=== PATIENT | male | born 1960 | race Caucasian/White ===

== ENCOUNTER 2022-04-25 18:38 | Emergency (ER) | payer MEDICARE, OTHER, SELFPAY ==
[2022-04-25 18:45] VITALS: BP 198/87; PULSE 85; RESP 16; TEMP 36.7; O2SAT 97
[2022-04-25 18:50] VITALS: BP 198/87; PULSE 85; RESP 18; TEMP 36.7; O2SAT 97
--- NOTE | 2022-04-25 18:50 | PC.NURSE ---
nasal clamp placed on patient
--- NOTE | 2022-04-25 19:14 | ED.EPISTAXIS ---
HPI - Epistaxis General Chief complaint: Epistaxis Stated complaint: nose bleed Time Seen by Provider: 04/25/22 19:12 Source: patient Mode of arrival: ambulatory Limitations: no limitations History of Present Illness HPI Narrative: 61-year-old male, smoker with a history of CAD status post stent, hypertension, dyslipidemia presented to the ER with -- bleeding right nostril since this morning. No nasal congestion or sinus tenderness . Patient is on aspirin and Plavix. A nasal clip was applied and Tej-Synephrine instilled into right nostril without any improvement. The patient continued to be have blood dripping from the right nostril initially and subsequently from both nostrils. MD complaint: epistaxis Location: right nostril and bilateral nostril Onset (ago): hour(s) ( Started this morning) Duration: intermittent Context: aspirin use ( uses aspirin and Plavix) Treatment prior to arrival: nose pinching Related Data Home Medications Medication Instructions Recorded Confirmed atorvastatin 40 mg tablet 40 mg PO DAILY 04/25/22 04/25/22 clopidogrel 75 mg tablet 75 mg PO DAILY 04/25/22 04/25/22 olmesartan 40 1 tablet PO DAILY 04/25/22 04/25/22 mg-hydrochlorothiazide 25 mg tablet Allergies Allergy/AdvReac Type Severity Reaction Status Date / Time No Known Allergies Allergy Verified 04/25/22 19:05 Review of Systems Review of Systems: All systems reviewed & are unremarkable except as noted in HPI and below Constitutional: Constitutional: Reports as per HPI and Reports no additional constitutional complaints Eyes: Eyes: Reports as per HPI and Reports no additional eye complaints ENT: Reports system reviewed and no additional complaints, except as documented, Reports as per HPI and Reports epistaxis Cardiovascular: Cardiovascular: Reports as per HPI and Reports no additional cardiovascular complaints Respiratory: Respiratory: Reports as per HPI, Reports no additional respiratory complaints, Reports chest congestion, Reports cough, Reports dyspnea and Reports wheezing Gastrointestinal: Gastrointestinal: Reports as per HPI and Reports no additional gastrointestinal complaints Genitourinary: Genitourinary: Reports no additional male genitourinary complaints and Reports as per HPI Musculoskeletal: Musculoskeletal: Reports no additional musculoskeletal complaints and Reports as per HPI Integumentary/Breasts: Skin/Breast: Reports system reviewed and no additional complaints, except as docu and Reports as per HPI Neurologic: Reports system reviewed and no additional complaints, except as documented and Reports as per HPI Psychiatric: Psychiatric: Reports no additional psychiatric complaints and Reports as per HPI Endocrine: Endocrine: Reports no additional endocrine complaints and Reports as per HPI Hematologic/Lymphatic: Hematologic/Lymphatic: Reports no additional hematologic/lymphatic complaints and Reports as per HPI Allergic/Immunologic: Allergic/Immunologic: Reports no additional allergic/immunologic complaints and Reports as per HPI Exam Const: General: ill appearing Nutritional Appearance: thin HENMT: Head: normal to inspection Ears: external ears normal Face/Nose/Sinus: Normal external nose present ( right-sided epistaxis and subsequently bilateral epistaxis) and Epistaxis present Face and sinus: normal facial exam Mouth: Yes Normal oral and palatal mucosa present Throat: posterior oropharynx normal Eyes: Conjunctivae: conjunctivae normal Pupils: Equal, round and reactive pupils present EOM: EOMs intact bilaterally Direct Ophthalmoscopy: no photophobia Neck: Neck: normal visual inspection, no lymphadenopathy and no meningeal signs Chest: Chest palpation & inspection: normal inspection of the chest Resp: Effort & Inspection: labored Auscultation: rhonchi, wheezes and diminished lung sounds Cardio: Rate: regular rate Rhythm: regular rhythm GI: GI Palp: Yes Soft to palpation Auscultation
[2022-04-25] MEDS: PHENYLEPHRINE HCL 0.5% NA SPRAY 15 ML BTL (*BKC) 1 SPRAY EACH NARE (19:21)
[2022-04-25] MEDS: IPRATROPIUM 0.5 MG/ALBUTEROL SULFATE 2.5 MG AMPUL.NEB 3 ML INHALATION (19:30)
[2022-04-25 19:31] VITALS: PULSE 80; RESP 20
[2022-04-25 19:40] VITALS: PULSE 81; RESP 20
[2022-04-25 19:42] LABS: Basophils Absolute Auto 0.09 K/mm3 (0.00-0.10); Basophils Percent Auto 0.9 % (0.0-1.0); Eosinophils Absolute Auto 0.15 K/mm3 (0.02-0.50); Eosinophils Percent Auto 1.6 % (1.0-6.0); Hematocrit 34.7 % (40.0-54.0); Hemoglobin 11.4 g/dL (14.0-18.0); Immature Granulocyte Absolute 0.03 K/mm3 (0.00-0.00); Immature Granulocyte Percent A 0.3 % (0.0-0.0); Lymphocytes Absolute Auto 2.19 K/mm3 (1.10-4.50); Lymphocytes Percent Auto 22.8 % (18.0-42.0); Mean Corpuscular HGB Conc 32.9 g/dL (32.0-36.0); Mean Corpuscular Hemoglobin 34.3 pg (27.0-31.0); Mean Corpuscular Volume 104.5 fL (78.0-102.0); Mean Platelet Volume 8.3 fl (8.7-11.0); Monocytes Absolute Auto 0.75 K/mm3 (0.10-0.90); Monocytes Percent Auto 7.8 % (2.0-11.0); Neutrophils Absolute Auto 6.4 K/mm3 (1.7-7.2); Neutrophils Percent Auto 66.6 % (50.0-70.0); Platelet Count Result 307 K/mm3 (150-420); Red Blood Count 3.32 M/mm3 (4.70-6.10); Red Cell Distribution Width 14.4 % (11.6-14.4); White Blood Count 9.6 K/mm3 (4.8-10.8)
[2022-04-25 19:57] LABS: INR 0.9; Partial Thromboplastin Time 25.6 SEC (23.90-30.70); Prothrombin Time 9.7 Seconds (9.50-12.10)
[2022-04-25 20:05] LABS: Alanine Aminotransferase 18 U/L (16-63); Albumin Level 3.2 g/dL (3.4-5.0); Alkaline Phosphatase 54 U/L (46-116); Anion Gap 9 mmol/L (8-16); Aspartate Amino Transferase 14 U/L (15-37); Bilirubin,Total 0.3 mg/dL (0.00-1.00); Blood Urea Nitrogen 27 mg/dL (7-18); Calcium 8.7 mg/dL (8.5-10.1); Carbon Dioxide 28 mmol/L (21-32); Chloride 105 mmol/L (98-108); Estimated CRCL calculation 63 ml/min; Estimated Glomerular Filt Rate > 60; Glucose 127 mg/dL (70-99); Osmolality Calculated 301 mOsm/kg (285-295); Potassium 4.1 mmol/L (3.5-5.1); Sodium 142 mmol/L (136-145); Total Protein 6.5 g/dL (6.4-8.2)
[2022-04-25 20:07] LABS: Troponin I 13.6 ng/L (0.00-60.4)
[2022-04-25 20:35] VITALS: BP 174/85; PULSE 86; RESP 20; O2SAT 97
[2022-04-25] MEDS: HYDROcodone/acetaminophen (*CRX) 5-325 MG TABLET 1 TAB PO (20:40)
[2022-04-25] MEDS: AZITHROMYCIN 250 MG TABLET 500 MG PO (21:17)
[2022-04-25] MEDS: predniSONE 20 MG TABLET PO (21:17)
[2022-04-25 21:26] VITALS: BP 165/81; PULSE 82; RESP 18; TEMP 36.7; O2SAT 99
== END 2022-04-25 21:25 | disposition home or self-care (01) ==
PROVIDERS: Emergency Provider Internal Medicine Critical Care Medicine
DX: R04.0 Epistaxis (principal); J44.1 Chronic obstructive pulmonary disease with (acute) exacerbation; F17.200 Nicotine dependence, unspecified, uncomplicated; I25.10 Atherosclerotic heart disease of native coronary artery without angina pectoris; I10 Essential (primary) hypertension
CPT/HCPCS: 30903; 36415; 80053; 84484; 85025; 85610; 85730; 94640; 99284; A9270; J7512

== ENCOUNTER 2024-07-09 09:08 | Outpatient (CLI) | payer MEDICARE, SELFPAY ==
--- NOTE | ~2024-07-09 | CT_ITS ---
CT Scan of the Chest without Contrast: Clinical Indication: Lung cancer screening, nicotine dependence Technique: Contiguous sections were acquired throughout the chest without intravenous contrast. Dose reduction technique was used on this scan by utilizing automated exposure control and iterative recon struction technique. The dose-length product (DLP) was 90.80 mGy-cm. Findings: There is no evidence of any significant mediastinal, hilar or axillary lymphadenopathy. Extensive cor onary artery calcifications are present. There is no evidence of pleural or pericardial effusion. The lungs are clear. No pulmonary nodules or infiltrates are noted.. There is moderate emphysema. Images through the upper abdomen reveal no abnormalities. Impression: Lung RADS 1: Negative. 12 month follow-up screening CT advised. Moderate emphysema. Reviewed, dictated and finalized at location . [facility] Impression: Lung RADS 1: Negative. 12 month follow-up screening CT advised. Moderate emphysema.
== END 2024-07-09 09:09 | disposition home or self-care (01) ==
LOC: MICIMG 09:09
PROVIDERS: PCP Internal Medicine; Visit Provider Internal Medicine
DX: Z12.2 Encounter for screening for malignant neoplasm of respiratory organs (principal); F17.210 Nicotine dependence, cigarettes, uncomplicated; J43.9 Emphysema, unspecified
CPT/HCPCS: 71271